=== PATIENT | female | born 2000 | race Caucasian/White ===

== ENCOUNTER 2019-03-14 20:22 | Emergency (ER) | END 2019-03-15 01:04 | disposition left against medical advice (07) | LOC: ER 20:22 | DX: Z53.21 Procedure and treatment not carried out due to patient leaving prior to being seen by health care provider (principal) ==

== ENCOUNTER 2019-10-14 19:08 | Emergency (ER) | payer OTHER ==
[2019-10-14 19:40] VITALS: BP 171/85
--- NOTE | 2019-10-14 20:18 | ER Document Report ---
ED Medical Screen (RME) - General Chief Complaint: Vaginal Bleeding Stated Complaint: VAGINAL BLEEDING Time Seen by Provider: 10/14/19 20:12 TRAVEL OUTSIDE OF THE [place] IN LAST 30 DAYS: No - HPI Notes: 10/14/19 20:17 Patient is a 19-year-old female with a history of ovarian cyst requiring surgical excision and is currently on the Depakote shot presents complaining of having abnormal breakthrough bleeding that began this afternoon. Patient is not sure of the rate of bleeding as she just put a pad and recently. She has had occasional nausea but does not want a nausea medicine. She is able to eat and drink without difficulty otherwise. She is urinating normally and having normal bowel movements. Patient does state that she drank a lot of alcohol last night and did have a hangover effect this morning. No fever, chest pain, shortness of breath. I have treated and performed a rapid initial assessment of this patient. A comprehensive ED assessment and evaluation of the patient, analysis of test results and completion of medical decision making process will be conducted by additional ED providers. PHYSICAL EXAMINATION: GENERAL: Well-appearing, well-nourished and in no acute distress. A&Ox4. Answers questions appropriately. Abdomen: Limited exam in triage, grossly nontender. - Related Data Allergies/Adverse Reactions: haloperidol [From Haldol] Allergy (Verified 10/14/19 20:15) promethazine Allergy (Verified 10/14/19 20:15) Physical Exam - Vital signs Vitals: Temp Pulse Resp BP Pulse Ox 98.6 F 112 H 20 171/85 H 98 10/14/19 19:39 10/14/19 19:39 10/14/19 19:39 10/14/19 19:39 10/14/19 19:39 Course - Vital Signs Vital signs: Temp Pulse Resp BP Pulse Ox 98.6 F 112 H 20 171/85 H 98 10/14/19 19:39 10/14/19 19:39 10/14/19 19:39 10/14/19 19:39 10/14/19 19:39
[2019-10-14 21:13] LABS: ABSOLUTE LYMPHOCYTES (AUTO) 2.1 10^3/uL (0.5-4.7); ABSOLUTE MONOCYTES (AUTO) 0.7 10^3/uL (0.1-1.4); ABSOLUTE NEUT (AUTO) 5.9 10^3/uL (1.7-8.2); BASOPHILS % (AUTO) 0.4 % (0-2); EOSINOPHILS % (AUTO) 0.3 % (0-6); HEMATOCRIT 38.1 % (36.0-47.0); HEMOGLOBIN 13.2 g/dL (12.0-15.5); LYMPHOCYTES % (AUTO) 24.5 % (13-45); MEAN CORPUSCULAR HEMOGLOBIN 30.9 pg (27.0-33.4); MEAN CORPUSCULAR HGB CONC 34.5 g/dL (32.0-36.0); MEAN CORPUSCULAR VOLUME 89 fl (80-97); MONOCYTES % (AUTO) 7.6 % (3-13); PLATELET COUNT 274 10^3/uL (150-450); RED BLOOD COUNT 4.27 10^6/uL (3.72-5.28); RED CELL DISTRIBUTION WIDTH 14.1 % (11.5-14.0); SEGMENTED NEUTROPHILS % (AUTO) 67.2 % (42-78); TOTAL CELLS COUNTED % (AUTO) 100 %; WHITE BLOOD COUNT 8.7 10^3/uL (4.0-10.5)
[2019-10-14 21:25] LABS: APPEARANCE,URINE SLIGHTLY-CLOUDY; BILIRUBIN,URINE NEGATIVE (NEGATIVE); COLOR,URINE YELLOW; GLUCOSE, URINE NEGATIVE (NEGATIVE); KETONES,URINE NEGATIVE (NEGATIVE); PROTEIN,URINE 30 mg/dL (NEGATIVE); URINE SPECIFIC GRAVITY 1.023; UROBILINOGEN,URINE NEGATIVE mg/dL (<2.0)
[2019-10-14 21:35] LABS: ALKALINE PHOSPHATASE 90 U/L (38-126); ANION GAP 9 (5-19); ASPARTATE AMINO TRANSFERASE 23 U/L (14-36); BILIRUBIN,DIRECT 0.3 mg/dL (0.0-0.4); BILIRUBIN,TOTAL 0.6 mg/dL (0.2-1.3); BLOOD UREA NITROGEN 11 mg/dL (7-20); CALCIUM 9.2 mg/dL (8.4-10.2); CARBON DIOXIDE 24 mmol/L (22-30); CHLORIDE 105 mmol/L (98-107); GLUCOSE 85 mg/dL (75-110); TOTAL PROTEIN 7.2 g/dL (6.3-8.2)
[2019-10-15] MEDS ORDERED: ONDANSETRON HCL INJ/PF 4 MG/2 ML SDV IV ONE (00:12)
[2019-10-15] MEDS ORDERED: KETOROLAC TROMETHAMINE INJ/PF 30 MG/1 ML SDV IV ONE (00:12)
[2019-10-15] MEDS ORDERED: NORMAL SALINE 1000 ML 1,000 ML IV ONE (00:12)
--- NOTE | 2019-10-15 00:26 | ER Document Report ---
ED GI/ - General Chief Complaint: Vaginal Bleeding Stated Complaint: VAGINAL BLEEDING Time Seen by Provider: 10/14/19 20:12 Notes: Patient is a 19-year-old female that comes emergency department for lower abdominal cramping, vaginal bleeding, and feeling generally rundown. She states that she did drink to intoxication last night and she has been hung over all day. She states she just wants to be checked because she was expecting to have vaginal bleeding this early after starting her Depo contraception. She also states that she has had 2 ovarian cyst removals previously and wants to make sure there is nothing concerning along. She denies severe abdominal pain, current abdominal pain, flank pain, vomiting, fever, dysuria, vaginal discharge. She denies any other medical history. TRAVEL OUTSIDE OF THE [place] IN LAST 30 DAYS: No - Related Data Allergies/Adverse Reactions: haloperidol [From Haldol] Allergy (Verified 10/14/19 20:15) promethazine Allergy (Verified 10/14/19 20:15) Past Medical History - General Information source: Patient - Social History Smoking Status: Never Smoker Chew tobacco use (# tins/day): No Frequency of alcohol use: Occasional Drug Abuse: None Lives with: Family Family History: Reviewed & Not Pertinent Patient has suicidal ideation: No Patient has homicidal ideation: No Psychiatric Medical History: Reports: Hx Bipolar Disorder, Hx Depression - Immunizations Immunizations up to date: Yes Hx Diphtheria, Pertussis, Tetanus Vaccination: Yes Review of Systems - Review of Systems Constitutional: See HPI EENT: No symptoms reported Cardiovascular: No symptoms reported Respiratory: No symptoms reported Gastrointestinal: See HPI Genitourinary: No symptoms reported Female Genitourinary: See HPI Musculoskeletal: No symptoms reported Skin: No symptoms reported Hematologic/Lymphatic: No symptoms reported Neurological/Psychological: See HPI Physical Exam - Vital signs Vitals: Temp Pulse Resp BP Pulse Ox 98.6 F 112 H 20 171/85 H 98 10/14/19 19:39 10/14/19 19:39 10/14/19 19:39 10/14/19 19:39 10/14/19 19:39 - Notes Notes: GENERAL: Alert, disheveled, does not appear to be in distress HEAD: Normocephalic, atraumatic. EYES: Pupils equal, round, and reactive to light. Extraocular movements intact. ENT: Oral mucosa dry, tongue midline. Oropharynx unremarkable. Airway patent. LUNGS: Clear to auscultation bilaterally, no wheezes, rales, or rhonchi. No respiratory distress. HEART: Regular rate and rhythm. No murmur ABDOMEN: Minimal lower abdominal tenderness, nonspecific, no guarding GENITOURINARY: Deferred EXTREMITIES: Moves all 4 extremities spontaneously. No edema, normal radial and dorsalis pedis pulses bilaterally. No cyanosis. BACK: no cervical, thoracic, lumbar midline tenderness. No saddle anesthesia, normal distal neurovascular exam. Moves all extremities in full range of motion. NEUROLOGICAL: Alert and oriented x3. Normal speech. Cranial nerves II through XII grossly intact. PSYCH: Slightly irritable SKIN: Warm, dry, normal turgor. No rashes or lesions noted. Course - Re-evaluation Re-evalutation: Patient appears exhausted, she is mildly tachycardic, she is somewhat hypertensive. She states her blood pressures been trended by primary care and normally it is 130s. She has no chest pain or shortness of breath, no headache. Her abdomen is actually quite benign other than minimal lower abdominal tenderness. Ultrasound shows small cyst but no concerning acute findings. CBC, chemistry, urinalysis unremarkable except for some blood in the urine. This was cultured after discussed with patient. test is negative. Patient was treated for dehydration, she was treated for symptoms with Toradol and Zofran as well after her hangover. She states she feels much better afterwards. Discussed results, discussed return precautions, patient stable for discharge with follow-up. Patient states appreciation and agreement. - Vital Signs Vital signs: Temp Pulse Resp BP Pulse Ox 98.6 F 112 H 20 171/85 H 98 10/14/19 19:39 10/14/19 19:39 10/14/19 19:39 10/14/19 19:39 10/14/19 19:39 - Laboratory Result Diagrams: 10/14/19 20:55 10/14/19 20:55 Laboratory results interpreted by me: 10/14/19 10/14/19 20:55 20:55 RDW 14.1 H Urine Protein 30 H Urine Blood LARGE H Leukocyte Esterase Rfl SMALL H Discharge - Discharge Clinical Impression: Nausea, Abdominal cramping, Vaginal bleeding, Dehydration Condition: Stable Disposition: HOME, SELF-CARE Additional Instructions: Your work-up shows dehydration and a small cyst on the left ovary with no concerning findings. Follow-up with your primary provider/[facility] for additional management of contraception with your breakthrough bleeding on Depo. Take [id number] anti-inflammatory such as naproxen or ibuprofen for pain and cramping, stay hydrated. Take provided nausea medication if needed. Return if you worsen including severe worsening pain, fever, vomiting, or any other concerning symptoms. Prescriptions: Ondansetron [Zofran Odt 4 mg Tablet] 1 - 2 tab PO Q4H PRN #15 tab.rapdis PRN Reason: For Nausea/Vomiting
--- NOTE | 2019-10-15 01:26 | RADIOLOGY REPORT (SQ) ---
CLINICAL HISTORY: lower abd pain, bleeding, hx large cysts/removal COMPARISON: None. TECHNIQUE: US PELVIS TRANSVAGINAL 10/15/2019 12:12 AM UNIT SUPPORT REPRESENTATIVE FINDINGS: Uterus measures 6.9 cm. Endometrial stripe measures 3 mm. Ovaries are normal in size with patent flow. Left ovarian cyst measures 2.6 cm. IMPRESSION: Small left ovarian cyst.
== END 2019-10-15 03:10 | disposition home or self-care (01) ==
LOC: ER 19:08
DX: N93.9 Abnormal uterine and vaginal bleeding, unspecified (principal); F10.129 Alcohol abuse with intoxication, unspecified; N83.202 Unspecified ovarian cyst, left side; R31.9 Hematuria, unspecified; R11.0 Nausea; E86.0 Dehydration; R00.0 Tachycardia, unspecified; R10.30 Lower abdominal pain, unspecified; Z88.8 Allergy status to other drugs, medicaments and biological substances
CPT/HCPCS: 36415; 85025; 81025; 80053; 81001; 76830; 93976; J1885; J2405; J7030; 87086; 96361; 96374; 96375; 99284

== ENCOUNTER 2019-11-25 16:31 | Emergency (ER) | payer OTHER ==
--- NOTE | 2019-11-25 17:05 | ER Document Report ---
HPI - HPI Onset: This morning Onset/Duration: Gradual Quality of pain: Achy Context: 19-year-old female presented to ED for complaint of subjective fever with no chills body aches cough shortness of breath nausea with no vomiting headache and diarrhea. She states this all started today. She states she is only very seldomly smoked a couple cigarettes at a time she is alert oriented respirations regular nonlabored speaking in full sentences. She does have a history of asthma. Her is a active duty [employer] and states that he is under quarantine from the [employer]. The patient was evaluated during the global Covid 19 pandemic, and that diagnosis was suspected/considered upon their initial presentation. Their evaluation, treatment and testing was consistent with current guidelines for patients who present with complaints or symptoms that may be related to Covid 19. Associated Symptoms: Body/muscle aches, Nonproductive cough Exacerbated by: Denies Relieved by: Denies Similar symptoms previously: Yes Recently seen / treated by doctor: No - CONSTITUTIONAL Constitutional: REPORTS: Fever, Chills - RESPIRATORY Respiratory: REPORTS: Coughing - GASTROINTESTINAL Gastrointestinal: REPORTS: Abdominal Pain, Nausea - REPRODUCTIVE Reproductive: DENIES: : - DERM Skin Color: Normal Past Medical History - General Information source: Patient - Social History Smoking Status: Former Smoker - Only smoked a few cigarettes in her life Lives with: Family Family History: Reviewed & Not Pertinent Patient has suicidal ideation: No Patient has homicidal ideation: No - Past Medical History Cardiac Medical History: Reports: None Pulmonary Medical History: Reports: Hx Asthma Psychiatric Medical History: Reports: Hx Bipolar Disorder, Hx Depression - Immunizations Immunizations up to date: Yes Hx Diphtheria, Pertussis, Tetanus Vaccination: Yes Vertical Provider Document - CONSTITUTIONAL Notes: PHYSICAL EXAMINATION: GENERAL: Well-appearing, well-nourished and in no acute distress. HEAD: Atraumatic, normocephalic. EYES: Pupils equal round extraocular movements intact, conjunctiva are normal. ENT: Swollen nasal turbinates with clear nasal drainage more cobblestone pattern to oral mucosa NECK: Normal range of motion LUNGS: No respiratory distress no wheezing or rhonchi auscultated able to speak in full sentences Musculoskeletal: Normal range of motion NEUROLOGICAL: Normal speech, normal gait. PSYCH: Normal mood, normal affect. SKIN: Warm, Dry, normal turgor, no rashes or lesions noted. - INFECTION CONTROL TRAVEL OUTSIDE OF THE [place] IN LAST 30 DAYS: No Course - Re-evaluation Re-evalutation: 11/25/19 17:05 Patient presents with upper respiratory symptoms worrisome for possible Covid 19. Patient does not have emergency worring symptoms such as difficulty breathing, shortness of breath, chest pain, pressure, confusion or cyanosis. Patient appears suitable for discharge. Good return precautions have been discussed with patient, patient verbalized understanding and is agreeable with discharge plan of care at this time. 11/25/19 17:38 Patient notified of Negative results for Rapid Flu (A & B) and Rapid Strep. Patient also advised of PENDING results for Throat Culture and COVID- 19. Discharge - Discharge Clinical Impression: Viral respiratory illness, covid 19 screening Condition: Stable Disposition: HOME, SELF-CARE Additional Instructions: Patient was provided with discharge information including: As a person under investigation for Covid 19, the Pending sale to [facility], division of public health advises you to adhere to the following guidance until your test results are reported to you. If your test result is positive, you will receive additional information from your provider and your local health department at that time. Remain at home until you are cleared by the health provider or public health authorities. Keep a log of visitors to your home, notify any visitors to your home of your isolation status. If you plan to move to a new address or leave the county, notify the local health department in your County. Call your doctor or seek care if you have an urgent medical need. Before seeking medical care, call ahead to get instructions from the provider before arriving at the medical office clinic or hospital. Notify them that you are being tested for the virus that causes Covid 19 so that arrangements can be made, as necessary, to prevent transmission to others in the healthcare setting. Next, notify the local health department in your county. If a medical emergency arises and you need to call 911, inform the first responders that you are being tested for the virus that causes Covid 19. Next, notify the local health department in your county. Referrals: [facility],NO [Primary Care Provider] - Follow up as needed
[2019-11-25 17:07] VITALS: BP 108/53
[2019-11-25 17:34] LABS: A TYPE INFLUENZA AG NEGATIVE (NEGATIVE); B INFLUENZA AG NEGATIVE (NEGATIVE)
== END 2019-11-25 16:50 | disposition home or self-care (01) ==
LOC: EDRDC 16:31
DX: J98.8 Other specified respiratory disorders (principal); B97.89 Other viral agents as the cause of diseases classified elsewhere; Z20.828 Contact with and (suspected) exposure to other viral communicable diseases; R05 Cough; R10.9 Unspecified abdominal pain; R11.0 Nausea; J45.909 Unspecified asthma, uncomplicated; M79.10 Myalgia, unspecified site; Z87.891 Personal history of nicotine dependence
CPT/HCPCS: 87070; 87635; 87804; 87880; 99211

== ENCOUNTER 2020-01-18 14:45 | Emergency (ER) | payer OTHER ==
[2020-01-18 15:37] VITALS: BP 130/61
--- NOTE | 2020-01-18 16:00 | ER Document Report ---
ED Medical Screen (RME) - General Chief Complaint: Syncope Stated Complaint: SYNCOPE/DIZZINESS Time Seen by Provider: 01/18/20 15:57 Primary Care Provider: GENNARO ESETVEZ [Primary Care Provider] - Follow up as needed Mode of Arrival: Ambulatory Information source: Patient Notes: 19-year-old female presented to ED for complaint of dizziness frequent syncope cannot walk without falling down generalized weakness. She states her entire back hurts. She states it is causing her legs to be very weak and they go out from under her. She states is also causing her arms to swell. She does have a history of mood swings anxiety depression and high blood pressure. Patient is alert oriented respirations regular and unlabored speaking in full sentences. She did almost fall walking from the vital sign machine to my chair. I did place her in a wheelchair after that. She states her last menstrual period was December 24. I have greeted and performed a rapid initial assessment of this patient. A comprehensive ED assessment and evaluation of the patient, analysis of test results and completion of medical decision making process will be conducted by an additional ED providers. TRAVEL OUTSIDE OF THE [place] IN LAST 30 DAYS: No - Related Data Allergies/Adverse Reactions: haloperidol [From Haldol] Allergy (Verified 10/14/19 20:15) promethazine Allergy (Verified 10/14/19 20:15) Past Medical History Pulmonary Medical History: Reports: Hx Asthma Psychiatric Medical History: Reports: Hx Bipolar Disorder, Hx Depression - Immunizations Immunizations up to date: Yes Hx Diphtheria, Pertussis, Tetanus Vaccination: Yes Physical Exam - Vital signs Vitals: Temp Pulse Resp BP Pulse Ox 98.4 F 83 18 130/61 H 98 01/18/20 15:36 01/18/20 15:36 01/18/20 15:36 01/18/20 15:36 01/18/20 15:36 Course - Vital Signs Vital signs: Temp Pulse Resp BP Pulse Ox 98.4 F 83 18 130/61 H 98 01/18/20 15:36 01/18/20 15:36 01/18/20 15:36 01/18/20 15:36 01/18/20 15:36 Doctor's Discharge - Discharge Referrals: GENNARO ESTEVEZ [Primary Care Provider] - Follow up as needed
--- NOTE | 2020-01-18 18:51 | EKG REPORT ---
SEVERITY:- BORDERLINE ECG - SINUS RHYTHM BORDERLINE T ABNORMALITIES, ANTERIOR LEADS : Confirmed by: Bryon Reddy MD 18-Jan-2020 18:50:32
[2020-01-18 18:52] LABS: ABSOLUTE LYMPHOCYTES (AUTO) 2.5 10^3/uL (0.5-4.7); ABSOLUTE MONOCYTES (AUTO) 0.6 10^3/uL (0.1-1.4); ABSOLUTE NEUT (AUTO) 9.9 10^3/uL (1.7-8.2); BASOPHILS % (AUTO) 0.4 % (0-2); EOSINOPHILS % (AUTO) 0.1 % (0-6); HEMOGLOBIN 14.4 g/dL (12.0-15.5); LYMPHOCYTES % (AUTO) 19.5 % (13-45); MEAN CORPUSCULAR HEMOGLOBIN 31.6 pg (27.0-33.4); MEAN CORPUSCULAR HGB CONC 34.3 g/dL (32.0-36.0); MEAN CORPUSCULAR VOLUME 92 fl (80-97); MONOCYTES % (AUTO) 4.4 % (3-13); PLATELET COUNT 312 10^3/uL (150-450); RED BLOOD COUNT 4.56 10^6/uL (3.72-5.28); RED CELL DISTRIBUTION WIDTH 13.9 % (11.5-14.0); SEGMENTED NEUTROPHILS % (AUTO) 75.6 % (42-78); TOTAL CELLS COUNTED % (AUTO) 100 %
[2020-01-18 19:04] LABS: APPEARANCE,URINE CLOUDY; BILIRUBIN,URINE NEGATIVE (NEGATIVE); COLOR,URINE YELLOW; GLUCOSE, URINE NEGATIVE (NEGATIVE); KETONES,URINE NEGATIVE (NEGATIVE); LEUKOCYTE ESTERASE,URINE NEGATIVE (NEGATIVE); NITRITE,URINE NEGATIVE (NEGATIVE); PROTEIN,URINE NEGATIVE (NEGATIVE); URINE SPECIFIC GRAVITY 1.017; UROBILINOGEN,URINE NEGATIVE mg/dL (<2.0)
[2020-01-18 19:09] LABS: ALBUMIN 4.7 g/dL (3.5-5.0); ALKALINE PHOSPHATASE 97 U/L (38-126); ANION GAP 9 (5-19); ASPARTATE AMINO TRANSFERASE 24 U/L (14-36); BILIRUBIN,TOTAL 0.4 mg/dL (0.2-1.3); BLOOD UREA NITROGEN 12 mg/dL (7-20); CALCIUM 10.1 mg/dL (8.4-10.2); CARBON DIOXIDE 27 mmol/L (22-30); CHLORIDE 101 mmol/L (98-107); CREATINE KINASE 42 U/L (30-135); GLUCOSE 90 mg/dL (75-110); POTASSIUM 4.2 mmol/L (3.6-5.0); TOTAL PROTEIN 8.2 g/dL (6.3-8.2)
[2020-01-19 04:54] LABS: URINE AMPHETAMINES SCREEN NEGATIVE; URINE BARBITURATES SCREEN NEGATIVE; URINE COCAINE SCREEN NEGATIVE; URINE MARIJUANA (THC) SCREEN NEGATIVE; URINE METHADONE SCREEN NEGATIVE; URINE PHENCYCLIDINE SCREEN NEGATIVE
[2020-01-19 04:58] LABS: URINE BENZODIAZEPINES SCREEN UNCONFIRMED POSITIVE
== END 2020-01-19 05:32 | disposition left against medical advice (07) ==
LOC: ER 14:45
DX: R55 Syncope and collapse (principal); R42 Dizziness and giddiness; R53.1 Weakness; M54.9 Dorsalgia, unspecified; M79.89 Other specified soft tissue disorders; J45.909 Unspecified asthma, uncomplicated; Z88.8 Allergy status to other drugs, medicaments and biological substances; Z53.20 Procedure and treatment not carried out because of patient's decision for unspecified reasons
CPT/HCPCS: 36415; 80053; 80307; 81001; 82550; 84484; 85025; 93005; 93010; 99281